=== PATIENT | female | born 1940 | race Caucasian/White ===

== ENCOUNTER 2019-04-11 08:13 | Outpatient (CLI) | payer MEDICARE, OTHER, SELFPAY ==
--- NOTE | 2019-04-11 | US_ITS ---
WS: [id number] RIGHT UPPER QUADRANT ULTRASOUND HISTORY: SERUM ALBUMIN DECREASED COMPARISON: None available. Liver: 14.5 cm in length. Coarsened echotexture throughout the liver. The entire liver is not very we ll visualized. No bile duct dilatation. Mild hepatic steatosis. Gallbladder: Nonmobile hyperechoic focus in the gallbladder is likely a polyp measuring 3.3 mm. No ga llstones. No gallbladder wall thickening. CBD: 2.1 mm Pancreas: Not well visualized. Right kidney: 9.8 cm in length. Minimal distention of the renal pelvis. No hydronephrosis. Aorta and IVC: Unremarkable. No ascites. US/US liver [id number] IMPRESSION: 1. Mild hepatic steatosis. 2. Benign-appearing gallbladder polyp. 3. Minimal distention of the RIGHT renal pelvis. May be due to distended urina ry bladder. At this time there is no significant obstruction.
== END 2019-04-11 08:14 | disposition home or self-care (01) ==
LOC: RADOUTREAD 11:01
PROVIDERS: Family Provider Family Medicine; Visit Provider Family Medicine
DX: E88.09 Other disorders of plasma-protein metabolism, not elsewhere classified (principal); K76.0 Fatty (change of) liver, not elsewhere classified; K82.4 Cholesterolosis of gallbladder
CPT/HCPCS: 76705

== ENCOUNTER 2019-04-27 11:08 | Outpatient (CLI) | payer MEDICARE, OTHER, SELFPAY ==
--- NOTE | 2019-04-27 | US_ITS ---
WS: [id number] RENAL ULTRASOUND HISTORY: HYDRONEPHROSIS COMPARISON: 04/11/2019 TECHNIQUE: 2-D and color Doppler imaging of the kidney submitted. Right kidney: 10.3 cm x 4.0 cm x 4.2 cm. Normal size kidney. There is still minimal fullness of the RIGHT renal pelvis. The calyces are not di lated. This may be related to small extrarenal pelvis. Left kidney: 9.3 cm x 4.0 cm x 4.1 cm. Normal echogenicity with no hydronephrosis or mass. Aorta: Normal. Urinary Bladder: Normal distention. No post void residual. Normal pre and post bladder volumes. US/US renal BI with bladder IMPRESSION: 1. Very minimal splitting of the RIGHT renal pelvis. No progression since the prior examination. Could be a small extrarenal pelvis. For further evaluation f ollow-up noncontrast CT may be helpful. The minimal dilatation could be an ext rarenal pelvis. 2. Normal bladder with no residual post void.
== END 2019-04-27 11:09 | disposition home or self-care (01) ==
LOC: RADOUTREAD 15:11
PROVIDERS: Family Provider Family Medicine; Visit Provider Family Medicine
DX: Z76.89 Persons encountering health services in other specified circumstances (principal)

== ENCOUNTER 2019-05-15 12:45 | Outpatient (CLI) | payer MEDICARE, OTHER, SELFPAY ==
--- NOTE | 2019-05-15 12:53 | CT_ITS ---
WS: [id number] CT ABDOMEN PELVIS TECHNIQUE: Noncontrast CT of the abdomen and pelvis with coronal and sagittal reformatted images. CLINICAL INFORMATION: HYDRONEPHROSIS COMPARISON: Ultrasound renal April 27, 2019 DLP: 1112.[address] scans at [facility] use at least one of these dose optimization techniques: automat ed exposure control; mA and/or kV adjustment per patient size (includes targeted exams where dose is matched to clinical indication); or iterative reconstruction. FINDINGS: Noncontrast liver is normal. Splenic granulomas. Small esophageal hiatal hernia. Adrenal glands are n ormal. Moderate aortic calcification. Lung bases are well aerated. Adrenal glands are normal. Mild dilatation of the right extrarenal pelvi s. Vascular calcification adjacent to the distal right ureter. Pelvic phleboliths. No definite obstru cting calculi. Normal left ureter. No hydronephrosis left kidney. No periaortic lymphadenopathy. Sigmoid diverticulosis. No evidence of acute diverticulitis. No evidence of small or large bowel obst ruction. Tiny fat-containing umbilical hernia. CT/CT kidney stone [id number] IMPRESSION: 1. Mild dilatation of the right extrarenal pelvis unchanged since the prior ul trasound. No obstructing ureteral calculi. 2. No hydronephrosis in the left kidney. 3. Small esophageal hiatal hernia. 4. Moderate aortic atheromatous disease. 5. Diverticulosis.
== END 2019-05-15 12:46 | disposition home or self-care (01) ==
LOC: RADWPI 12:51
PROVIDERS: Family Provider Family Medicine; PCP Family Medicine; Visit Provider Family Medicine
DX: N13.30 Unspecified hydronephrosis (principal); K44.9 Diaphragmatic hernia without obstruction or gangrene; I70.0 Atherosclerosis of aorta; K57.90 Diverticulosis of intestine, part unspecified, without perforation or abscess without bleeding
CPT/HCPCS: 74176; G0424

== ENCOUNTER → 2019-05-31 09:16 | Outpatient (BNVA) | payer MEDICARE, OTHER, SELFPAY | PROVIDERS: Family Provider Family Medicine; PCP Family Medicine; Visit Provider Urology | DX: Q63.8 Other specified congenital malformations of kidney (principal) | CPT/HCPCS: 81001 ==

== ENCOUNTER 2021-07-24 13:18 | Emergency (ER) | payer MEDICARE, OTHER, SELFPAY ==
[2021-07-24 13:58] VITALS: BP 194/89; PULSE 80; RESP 14; TEMP 36.4; O2SAT 98; BMI 29.0
--- NOTE | 2021-07-24 14:36 | ED_ITS ---
HPI - General Adult General: Chief complaint: General Medical Stated complaint: High Blood Pressure Time Seen by Provider: 07/24/21 14:14 History of Present Illness: [80]yo patient w/ x hx of HTN presenting to the ED with complaints that her BP is not well controlled. Patient tells me that she takes losartan for blood pressure and has not taken her medicine yesterday because she forgot. Earlier this morning, patient noted her blood pressure systolic over 200s. However, the patient noticed today BP is uncontrolled. Denies chest pain, SOB, palpitation, N/V/D, pain radiating to the shoulder, headache, vision changes, LOC, or focal neurological deficits. Patient also denies light-headedness, syncope, vertigo abdominal pain, back pain. Tolerating PO meds without issues. Onset:today Duration: ongoing Location: home Severity: mild Associated symptoms: Deny chest pain, dyspnea, nausea, rash, palpitations or vomiting Review of Systems Const: Denies: fever(s) or chills Eyes: Denies: change in vision ENMT: Denies: mouth pain Card: Denies: chest pain or palpitations Resp: Denies: dyspnea or non-productive cough GI: Denies: abdominal pain, nausea, vomiting or diarrhea : Denies: dysuria Musc: Denies: extremity pain Skin/Breast: Denies: rash or new lesions Neuro: Denies: weakness in extremities Psych: Reports: other (Normal mood) Britton/Lymph: Denies: easy bruising PFSH ED PFSH: Medical History (Updated 07/24/21 @ 17:52 by Nancy Cowan MD) Extrarenal pelvis Hypothyroidism UTI (urinary tract infection) Family History Sister Cancer Son Diabetes Social History Smoking and tobacco status: never smoked Alcohol intake: never Adopted: No Caregiver/support person: No Lives independently: No Household members: children Marital status: Current occupational status: retired History of recent travel: No Current gender identity: Female Physical Exam Const: COMMON NORMALS: alert HENMT: COMMON NORMALS: atraumatic HEAD & SCALP: atraumatic MOUTH: moist mucous membranes not abnormal Eye: COMMON NORMALS: EOMs intact bilaterally and conjunctivae normal CONJUNCTIVA: Yes conjunctivae normal Neck/C-Spine: COMMON NORMALS: full ROM and supple Resp: COMMON NORMALS: normal respiratory effort and clear to auscultation bilaterally AUSCULTATION: clear to auscultation bilaterally Cardio: COMMON NORMALS: regular rate RATE: regular rate GI: COMMON NORMALS: Soft to palpation and non-tender PALPATION: Yes Soft to palpation Extremity: COMMON NORMALS: full ROM Neuro: SENSORIUM/ORIENTATION: Yes alert MOTOR EXAM: No Abnormal motor strength present and Other motor observations present (no focal motor deficits) Psych: COMMON NORMALS: speech normal SPEECH: Yes normal speech MOOD & AFFECT: Yes euthymic mood Course Vital Signs: Vital signs: Vital Signs Temperature 97.5 F L 07/24/21 13:58 Pulse Rate 76 07/24/21 17:10 Respiratory Rate 18 07/24/21 17:10 Blood Pressure 202/82 07/24/21 17:10 Pulse Oximetry 97 07/24/21 17:10 MDM - General Adult Medical Decision Making [80]yo patient w/ hx of HTN on losartan 50mg medications presenting to the ED with high BP readings x 1 day without other medical complaints. BP in the ED of 203/78. Rest of exam including full neuro exam intact. Given presentation, histo ry and exam, I do not suspect aortic dissection, hypertensive encephalopathy, intracranial hemorrhage, ACS, TIA/CVA, flash pulmonary edema. Intervention: amlodipine 10mg in the ER [4:00pm] On reassessment, BP improved on reassessment. Patient continues to be symptom-free at this time. Do not suspect an emergent cause. Discussed with the patient the importance of logging BPs and following up with his PCP for adjustment of BP if BP continues to be persistently high. Given return instructions. Rx: Amlodipine 5mg QDaily x 14 days Based on history, exam, vital signs, and work up (as indicated) I do not suspect an ongoing emergent medical condition, and I believe the patient is safe for discharge and outpatient follow-up. The plan of care was discussed with the patient and all questions were answered. The patient agrees with the plan of care and is discharged in stable condition with verbal and written instructions, and verbalized understanding and ability to comply. I discussed the diagnosis and treatment plan at length with the patient. The patient understands signs and symptoms (including those which are new or worsening) which should prompt return to the ED. The patient is to seek prompt outpatient follow-up as noted verbally and/or in the discharge instructions. At the time of discharge the patient is well-appearing, well-hydrated, non-toxic, and assures appropriate follow-up as an outpatient. Patient is given strict return precaution for any signs of chest pain, focal neurological weakness, abdominal pain, or any new or concerning complaints as these can be hypertensive emergency. Patient instructed to continue taking blood pressure medicine as instructed and keep daily log. Lab Data : 07/24/21 14:28 07/24/21 14: Laboratory Results WBC 5.2 10^3/uL (4.0-10.0) 07/24/21 14: RBC 4.29 10^6/uL (4.1-5.3) 07/24/21 14: Hgb 13.0 g/dL (11.5-15.3) 07/24/21 14: Hct 38.7 % (37.0-47.0) 07/24/21 14: MCV 90.2 fl (81-99) 07/24/21 14: MCH 30.3 pg (28.0-34.0) 07/24/21 14: MCHC 33.6 g/dL (30.0-36.0) 07/24/21 14: RDW 13.0 % (12.1-15.1) 07/24/21 14: Plt Count 222 10^3/cmm (130-400) 07/24/21 14: MPV 10.9 fL (7.4-10.4) H 07/24/21 14: Neut % (Auto) 62.2 % 07/24/21 14: Lymph % (Auto) 29.4 % 07/24/21 14: [place] % (Auto) 6.8 % 07/24/21 14: Eos % (Auto) 0.8 % 07/24/21 14: Baso % (Auto) 0.6 % 07/24/21 14: Neut # (Auto) 3.22 10^3/uL (1.8-7.7) 07/24/21 14: Lymph # (Auto) 1.5 10^3/uL (0.8-4.8) 07/24/21 14:28 [place] # (Auto) 0.4 10^3/uL (0.2-0.9) 07/24/21 14:28 Eos # (Auto) 0.0 10^3/uL (0.0-0.8) 07/24/21 14:28 Baso # (Auto) 0.0 10^3/uL (0.0-0.1) 07/24/21 14: Nucleated RBC % (auto) 0 % 07/24/21 14: Nucleated RBCs # 0.0 /100WBC 07/24/21 14:28 Sodium 142 mmol/L (136-145) 07/24/21 14: Potassium 4.0 mmol/L (3.5-5.1) 07/24/21 14: Chloride 107 mmol/L (98-107) 07/24/21 14: Carbon Dioxide 21 mmol/L (22-29) L 07/24/21 14: Anion Gap 18.0 (5-19) 07/24/21 14:28 BUN 12 mg/dL (8-23) 07/24/21 14:28 Creatinine 0.9 mg/dL (0.5-0.9) 07/24/21 14:28 GFR Calculation Not Reportable 07/24/21 14: Glucose 108 mg/dL (65-115) 07/24/21 14:28 Calculated Osmolality 294 mOsm/kg (285-295) 07/24/21 14: Calcium 8.9 mg/dL (8.5-10.5) 07/24/21 14:28 Troponin T Baseline 11 ng/L (0-10) H 07/24/21 14:28 Troponin T 120 Minute 10.98 ng/L (0-10) H 07/24/21 16:40 Delta Troponin T -0.02 ABS# (0-10) L 07/24/21 16:40 Discharge Plan Discharge Patient Disposition: Home Clinical Impression: Hypertension, Elevated blood pressure reading Condition: Stable Prescriptions: New amlodipine 5 mg tablet 5 mg PO DAILY 14 Days Qty: 14 0RF No Action losartan 50 mg tablet 50 mg PO BID 0RF levothyroxine 88 mcg capsule 88 mcg PO DAILY 0RF Rx Instructions: TAKES 3 DAYS A WEEK levothyroxine 75 mcg capsule 75 mcg PO .WEEKLY 0RF Rx Instructions: TAKES 4 DAYS A WEEK simvastatin 40 mg tablet 40 mg PO QPM 0RF Multi-Daily Tablet 1 tab PO DAILY 0RF valsartan 320 mg tablet See Rx Instructions .ROUTE .COMPLEX 0RF Rx Instructions: 1/2 tablet po bid hydrochlorothiazide 25 mg Tablet 25 mg PO QAM 0RF Discharge Orders: Discharge ED (Routine); Ordered 07/24/21 Ordered By: Nancy Cowan Referrals: Case Jay MD [Primary Care Provider] - Discharge Diet: Advance as tolerated Discharge Activity: Increase activity as tolerated Patient Instructions: Hypertension (ED) Activity Restrictions/Additional Instructions: You need to follow-up with your primary care provider for further adjustment of your blood pressure. Your blood pressure puts you at risk for developing strokes and heart attack. Therefore it is very important for you to follow-up with this number to see if the numbers improve gradually. Because blood pres sure adjustment is a gradual process, were not able to change it in 1 visit. Therefore please log your blood pressure and follow-up with your primary care provider in the next 72 hours for further adjustment of your blood pressures. Coding Level of Care Code ED Junior Underwriter for [employer] Fwd Exam Comprehensive
--- NOTE | 2021-07-24 14:36 | ECG_ITS ---
[facility] Test Date: 2021-07-24 Pat Name: Justa Bellamy Department: Room: Gender: Female Obstetrics Nurse Practitioner: : 1940 Requested By: Nancy Cowan Order Number: [id number] Robert MD: Clayton Dyer M.D. Measurements Intervals [place] Rate: 71 P: 70 TN: 186 QRS: 8 QRSD: 156 T: 88 QT: 440 QTc: 480 Interpretive Statements SINUS RHYTHM LEFT BUNDLE BRANCH BLOCK [120+ ms QRS DURATION, 80+ ms Q/S IN V1/V2, 85+ ms R IN I/aVL/V5/V6] No previous ECG available for comparison Electronically Signed On 07-24-2021 16:49:22 CDT by Clayton Dyer M.D. [email or web address] Groupsharkey issaquena community hospitalncyclost. [email or web address] Network/store/OV/[id number]
[2021-07-24 14:45] LABS: Basophils % 0.6 %; Eosinophils % 0.8 %; Hematocrit 38.7 % (37.0-47.0); Lymphocytes # 1.5 10^3/uL (0.8-4.8); Lymphocytes % 29.4 %; Mean Corpuscular HGB Conc 33.6 g/dL (30.0-36.0); Mean Corpuscular Hemoglobin 30.3 pg (28.0-34.0); Mean Corpuscular Volume 90.2 fl (81-99); Mean Platelet Volume 10.9 fL (7.4-10.4); Monocytes # 0.4 10^3/uL (0.2-0.9); Monocytes % 6.8 %; Neutrophils # 3.22 10^3/uL (1.8-7.7); Neutrophils % 62.2 %; Nucleated Red Blood Cells % 0 %; Platelet Count 222 10^3/cmm (130-400); Red Blood Count 4.29 10^6/uL (4.1-5.3); White Blood Count 5.2 10^3/uL (4.0-10.0)
[2021-07-24 14:55] VITALS: BP 207/85; PULSE 66; RESP 20; O2SAT 98
[2021-07-24] MEDS: amlodipine 5 mg Tablet PO ×2 (15:03→15:50)
--- NOTE | 2021-07-24 15:03 | PC.NURSE ---
Spoke with Dr. Cowan, instructed to give 5 mg of blood pressure medication, see if that dose helps lower blood pressure to 170's then hold second dose, if it does not lower pressure instructed to give 2nd dose.
[2021-07-24 15:04] VITALS: BP 189/75; PULSE 60; RESP 12; O2SAT 99
[2021-07-24 15:22] LABS: Troponin(5th) Baseline 11 ng/L (0-10)
[2021-07-24 15:25] LABS: Blood Urea Nitrogen 12 mg/dL (8-23); Calcium 8.9 mg/dL (8.5-10.5); Carbon Dioxide 21 mmol/L (22-29); Chloride 107 mmol/L (98-107); Glucose 108 mg/dL (65-115); Osmolality Calculated 294 mOsm/kg (285-295); Sodium 142 mmol/L (136-145)
--- NOTE | 2021-07-24 16:36 | ECG_ITS ---
[facility] Test Date: 2021-07-24 Pat Name: Justa Bellamy Department: Room: Gender: Female Product Development Actuary: : 1940 Requested By: Nancy Cowan Order Number: [id number] Robert MD: Clayton Dyer M.D. Measurements Intervals [place] Rate: 72 P: 68 AL: 193 QRS: 7 QRSD: 161 T: 117 QT: 432 QTc: 473 Interpretive Statements SINUS RHYTHM LEFT BUNDLE BRANCH BLOCK [120+ ms QRS DURATION, 80+ ms Q/S IN V1/V2, 85+ ms R IN I/aVL/V5/V6] Compared to ECG 07/24/2021 14:34:41 No significant changes Electronically Signed On 07-24-2021 17:00:45 CDT by Clayton Dyer M.D. [email or web address]/[id number]
[2021-07-24 17:10] VITALS: BP 202/82; PULSE 76; RESP 18; O2SAT 97
[2021-07-24 17:26] LABS: Troponin 5 2HR 10.98 ng/L (0-10)
[2021-07-24] MEDS: NIFEdipine ER (24 hr) 30 mg Tablet PO (17:43)
[2021-07-24 17:48] LABS: Troponin 5 2HR Delta -0.02 ABS# (0-10)
[2021-07-24 18:42] VITALS: BP 195/87; PULSE 82; RESP 18; O2SAT 96
--- NOTE | 2021-07-24 18:43 | PC.NURSE ---
Patient blood pressure discussed with Dr. Cowna,he states she is able to go home with blood pressure at 195/87, patient holding consistent throughout visit, Dr. Cowan aware. patient being sent home with blood pressure medication. Patient vitals stable, no distress noted.
[2021-07-24 18:45] VITALS: BP 195/87; PULSE 90; RESP 18; O2SAT 98
== END 2021-07-24 18:46 | disposition home or self-care (01) ==
PROVIDERS: Emergency Provider Emergency Medicine; PCP Family Medicine
DX: I10 Essential (primary) hypertension (principal); E03.9 Hypothyroidism, unspecified
CPT/HCPCS: 80048; 84484; 85025; 93005; 99284

== ENCOUNTER 2022-11-26 14:12 | Outpatient (CLI) | payer MEDICARE, OTHER, SELFPAY ==
--- NOTE | 2022-11-26 14:18 | MR_ITS ---
WS: [id number] MRI HEAD WITH CONTRAST TECHNIQUE: Sagittal T1, T2 axial, T2 axial FLAIR, axial susceptibility weighted imaging, axial diffus ion weighted images, and coronal T2 images were obtained. Pre and post-T1 axial and post T1 coronal i mages. ADC and FSPGR images. CLINICAL INFORMATION: MEMORY IMPAIRMENT COMPARISON: None. FINDINGS: No evidence of restricted diffusion to suggest acute ischemia. Ventricular system and basilar cistern s are patent. Normal posterior fossa. Normal vascular flow voids at the skull base. No extra-axial fl uid collections. No evidence of mass or mass effect. Mucosal thickening in the paranasal sinuses. [place] air cells are well aerated. Moderate small vessel changes. Moderate parenchymal volume loss. Mil d to moderate symmetric atrophy temporal lobes and hippocampal formations. Normal optic chiasm and pi tuitary infundibulum. No hemosiderin on the susceptibility weighted images. Normal posterior nasopharynx and parapharyngeal fat. Normal dural venous sinuses. Somewhat prominent ventricular system likely on the basis of central atrophy. No transependymal edema . No abnormal gadolinium enhancement. IMPRESSION: 1. No evidence of restricted diffusion to suggest acute ischemia. 2. Moderate small vessel changes with moderate parenchymal volume loss. 3. Mild to moderate symmetric atrophy temporal lobes and hippocampal formations. 4. No hemosiderin on susceptibility-weighted images. 5. No abnormal gadolinium enhancement. 6. Somewhat prominent ventricular system likely on the basis of central atrophy. NPH less likely. Re commend clinical correlation with symptoms. 7. No other suspicious findings.
[2022-11-26] MEDS: gadobenate dimeglumine 20 mL vial IV (15:31)
== END 2022-11-26 14:13 | disposition home or self-care (01) ==
PROVIDERS: PCP Family Medicine; Visit Provider Family Medicine
DX: R41.3 Other amnesia (principal); I67.89 Other cerebrovascular disease; G31.9 Degenerative disease of nervous system, unspecified
CPT/HCPCS: 70553; A9577